=== PATIENT | male | born 1950 | race Caucasian/White ===

== ENCOUNTER 2016-08-24 17:52 | Inpatient (IN) | payer OTHER ==
[~2016-08-24] VITALS: Ht 177.8 cm; Wt 79.0 kg
[2016-08-24 19:30] VITALS: BP 119/75
[2016-08-24] MEDS ORDERED: IV NORMAL SALINE 1000ML BAG 1,000 ML IV SCH (20:15)
[2016-08-24] MEDS ORDERED: MORPHINE SULFATE 4 MG/ML DISP.SYRIN. IV PRN (20:15)
--- NOTE | 2016-08-24 22:13 | PDOC1 ---
History and Physical Date of Admission Date of Admission DATE: 08/24/16 TIME: 22:06 Identification/Chief Complaint Chief Complaint dizzy Problems: Source Source: Chart review, Patient History of Present Illness History of Present Illness pt was weak and dizzy about three days, worse today, went to the [facility] ER, and they requested transfer here. He has prior Hx of Renal Cell Ca. years ago, post nephrectomy. [facility] Er reported recurrence of cancer, now with recent chemo for metastatic disease, and they mentioned they had offered him hospice. He is reluctant to move that way as he is ambulatory and feels well some weakness and some dizzyness Past Surgical History Past Surgical History: Other (nephrectpmy) Family History Family History: No Significant Social History Smoke: No ALCOHOL: none Drugs: None Current Medications Current Medications Current Medications Sodium Chloride (Iv Sodium Chloride 0.9% 1000ml Bag) 1,000 ml @ 80 mls/hr [id number] IV Last administered on 08/24/16t 21:13; Start 08/24/16 at 20:15 Morphine Sulfate 4 mg PRN Q2HR PRN IV PAIN Last administered on 08/24/16t 21:14 ; Start 08/24/16 at 20:15 Oxycodone/ Acetaminophen (Percocet 5/325) 1 tab PRN Q4HRS PRN PO PAIN; Start at 20:15 Polyethylene Glycol (miraLAX PACKET) 17 gm DAILY PO ; Start 08/25/16 at 09:00 Carvedilol (Coreg) 6.25 mg BIDWMEALS PO ; Start 08/24/16 at 22:15; Status UNV Albuterol/ Ipratropium (Duoneb) 3 ml BID NEB ; Start 08/25/16 at 09:00; Status UNV Budesonide (Pulmicort) 0.5 mg 1X ONCE NEB ; Start 08/24/16 at 22:15; Stop 08/24 at 22:16; Status UNV Budesonide (Pulmicort) 0.5 mg RTBID NEB ; Start 08/25/16 at 08:00; Status UNV Albuterol/ Ipratropium (Duoneb) 3 ml RTQID PRN NEB dyspnea; Start 08/24/16 at 22:15; Status UNV Allergies Allergies: Coded Allergies: bupropion (Verified Allergy, Intermediate, 08/24/16) ROS General: YES: Fatigue, No: Appetite, Chills, Malaise, Night Sweats, Other PSYCHOLOGICAL ROS: YES: Irritablity, No: Anxiety, Behavioral Disorder, Concentration difficultie, Decreased libido , Depression, Disorientation, Hallucinations, Hostility, Memory difficulties, Mood Swings, Obsessive thoughts, Other, Physical abuse, Sexual abuse, Sleep disturbances, Suicidal ideation Eyes: No Blurry vision, No Decreased vision, No Double vision, No Dry eyes, No Excessive tearing, No Eye Pain, No Itchy Eyes, No Loss of vision, No Other, No Photophobia, No Scotomata, No Uses contacts, No Uses glasses HEENT: No: Epistaxis, Heacaches, Hearing change, Nasal congestion, Nasal discharge, Oral lesions, Other, Sinus pain, Sneezing, Snoring, Sore Throat, Tinnitus, Vertigo, Visual Changes, Vocal changes Respiratory: YES: SOB with excertion, Shortness of breath, No: Cough, Hemoptysis, Orthopnea, Other, Pleuritic Pain, Sputum Changes, Stridor, Tachypnea, Wheezing Cardiovascular: No Chest Pain, No Edema, No Lt Headedness, No Orthopnea, No Other, No Palpitations, No Paroxysmal Noc. Dyspnea Gastrointestinal: Yes Nausea, No Abdominal Pain, No Constipation, No Diarrhea, No Hematochezia, No Melena, No Other, No Vomiting Genitourinary: No , No , No , No , No , No , No , No Discharge, No Dysuria, No Flank Pain, No Frequency, No Hematuria, No Incontinence, No Other, No Pain, No Retention, No Urgency Musculoskeletal: No Gait Disturbance, No Joint Pain, No Joint Stiffness, No Joint Swelling, No Muscle Pain, No Muscular Weakness, No Other, No Pain In:, No Swelling In: Neurological: Yes Dizziness, Yes Gait Disturbance, No Behavorial Changes, No Bowel/Bladder ControlChng, No Confusion, No Headaches, No Impaired Coord/balance, No Memory Loss, No Numbness/Tingling, No Other, No Seizures, No Speech Problems, No Tremors, No Visual Changes, No Weakness Skin: No Acne, No Dry Skin, No Eczema, No Hair Changes, No Lumps, No Mole Changes, No Mottling, No Nail Changes, No Other, No Pruritus, No Rash, No Skin Lesion Changes Physical Exam General: Alert, Oriented X3, Cooperative, No acute distress HEENT: Atraumatic, PERRLA, EOMI, Mucous membr. moist/pink Lungs: Clear to auscultation, Normal air movement Heart: no gallops, no murmurs, irregularly irregular Abdomen: Normal bowel sounds, Soft Rectal Exam: not examined Extremities: No cyanosis, No edema, Normal pulses Skin: No rashes Neuro: Normal speech, Sensation intact, Cranial nerves 3-12 NL Psych/Mental Status: Mental status NL, Mood NL Vitals Vitals Vital Signs Date Time Temp Pulse Resp B/P Pulse Ox O2 Delivery O2 Flow Rate FiO2 08/24/16 21:47 18 96 2.0 08/24/16 21:14 Room Air 08/24/16 19:30 97.9 105 119/75 97.9 Labs Labs Laboratory Tests Test 08/24/16 20:40 Glucose (Fingerstick) 102mg/dL (70-99) Laboratory Tests Test 08/24/16 20:40 Glucose (Fingerstick) 102mg/dL (70-99) VTE Prophylaxis Ordered VTE Prophylaxis Devices: No VTE Pharmacological Prophylaxi: Yes Assessment/Plan Assessment/Plan Dehydration, vasomotor nephropathy. IV fluid, consult renal Htn, bigeminy, restart Coreg, cont norvasc, consult CV Renal Cell Ca, metastatic, w. s/p prior nephrectomy and treatment for same years ago. Consult onc, prognosis likely poor COPD, stable, 02 at HS, cont nebs, and Inhl steroid LANCE STEVE MD Aug 24, 2016 22:13
[2016-08-24] MEDS ORDERED: SALIVA STIMULANT AGENT 44ML SPRAY BOTTLE. PO PRN (22:15)
[2016-08-24] MEDS ORDERED: BUDESONIDE 0.5 MG/2 ML NEBU. NEB ONE (22:15)
[2016-08-24] MEDS ORDERED: MIRTAZAPINE 15 MG TABLET PO SCH (22:15)
[2016-08-24] MEDS ORDERED: ALBUTEROL SULFATE 2.5 MG/3 ML NEBU. NEB PRN (22:15)
[2016-08-24] MEDS: CARVEDILOL 6.25 MG TABLET. PO SCH (22:57)
--- NOTE | 2016-08-24 23:51 | RAD ---
Ventilation and perfusion lung scan Indication: Shortness of air. The patient was administered 25 millicuries of xenon 133 gas and inspiratory, equilibrium and washout views of the chest were obtained. Next, patient was administered 5 millicuries Tc 99m MAA intravenously and imaging of the chest was performed in multiple obliquities. The ventilation portion of the study show somewhat heterogeneous ventilation. There is moderate retention consistent with COPD. No ventilation defects are seen. Perfusion portion of the exam does show some heterogeneous profusion but no definite moderate or large sized pleural based perfusion defects are identified. Impression: Low to low intermediate probability for pulmonary embolism. Electronically signed by: Dann Morin MD (Aug 24, 2016 23:50:50)
--- NOTE | 2016-08-25 00:07 | RAD ---
Chest PA and lateral Indication: Shortness of air. Time of exam 11:43 p.m. The heart size is normal. The lungs are hyperinflated consistent with COPD. There is a nodular density in the right base, likely a granuloma. No infiltrate or failure is detected. No effusion is seen. Impression: COPD. No other significant abnormality is detected. Electronically signed by: Dann Morin MD (Aug 25, 2016 00:05:54)
[2016-08-25] MEDS ORDERED: TIOT18CA IH (01:51)
[2016-08-25] MEDS ORDERED: SENN1TAB21 PO (01:51)
[2016-08-25] MEDS ORDERED: ALBU8.5H5 IH (01:51)
[2016-08-25] MEDS ORDERED: MIRT15TA PO (01:51)
[2016-08-25] MEDS ORDERED: METH5TAB12 PO (01:51)
[2016-08-25] MEDS ORDERED: LOPE2CAP PO (01:51)
[2016-08-25] MEDS ORDERED: SALI44.3 MM (01:51)
[2016-08-25] MEDS ORDERED: MORP30TA3 PO (01:51)
[2016-08-25] MEDS ORDERED: BUDE10.2 IH (01:51)
[2016-08-25] MEDS ORDERED: ASPI-482 PO (01:51)
[2016-08-25] MEDS ORDERED: PROAIR HFA8.5 GM INH (01:51)
[2016-08-25] MEDS ORDERED: ONDA4TAB10 SL (01:51)
[2016-08-25] MEDS ORDERED: MORP15TA PO (01:51)
[2016-08-25] MEDS ORDERED: TAMS0.4C2 PO (01:51)
[2016-08-25] MEDS ORDERED: METF500T4 PO (01:51)
[2016-08-25] MEDS ORDERED: AMLO10TA2 PO (01:51)
[2016-08-25 03:50] VITALS: BP 103/69
[2016-08-25 05:10] LABS: BASO # 0.1 x10^3/uL (0.0-0.2); BASO % 1 % (0-3); EOS % 8 % (0-3); HEMATOCRIT 29.2 % (39.0-53.0); HEMOGLOBIN 9.6 g/dL (13.0-17.5); LYMPH % 17 % (24-48); MEAN CORPUSCULAR HEMOGLOBIN 31 pg (25-35); MEAN CORPUSCULAR HGB CONC 33 g/dL (31-37); MEAN CORPUSCULAR VOLUME 95 fL (79-100); MONO % 10 % (0-9); NEUT % 64 % (31-73); PLATELET COUNT 347 x10^3/uL (140-400); RED BLOOD COUNT 3.07 x10^6/uL (4.30-5.70); WHITE BLOOD COUNT 5.9 x10^3/uL (4.0-11.0)
[2016-08-25 05:35] LABS: INR 1.1 (0.8-1.1); PROTHROMBIN TIME PATIENT 13.8 SEC (11.7-14.0)
[2016-08-25 05:40] LABS: ALBUMIN 3.1 g/dL (3.4-5.0); ALBUMIN/GLOBULIN RATIO 0.8 (1.0-1.7); CALCIUM 9.2 mg/dL (8.5-10.1); CREATININE 1.3 mg/dL (0.7-1.3); GFR 55.6; PHOSPHORUS 4.2 mg/dL (2.6-4.7); POTASSIUM 4.1 mmol/L (3.5-5.1); TOTAL BILIRUBIN 0.3 mg/dL (0.2-1.0)
[2016-08-25 07:00] VITALS: BP 113/79
[2016-08-25] MEDS ORDERED: IPRATRPIUM/ALBUTEROL 0.5/2.5MG 3 ML NEBU. NEB SCH (08:00)
[2016-08-25] MEDS ORDERED: BUDESONIDE 0.5 MG/2 ML NEBU. NEB SCH (08:00)
--- NOTE | 2016-08-25 08:43 | PDOC ---
PROGRESS NOTES Chief Complaint Chief Complaint Generalized weakness, dizziness POA Dehydration, vasomotor nephropathy. I Htn, bigeminy, Renal Cell Ca, metastatic, w. s/p prior nephrectomy and tx- COPD, stable, 02 at HS, MIld PCM History of Present Illness History of Present Illness DOing ok NO comaplaints Labs ok VS ok [facility] can [facility]" PLAN: Renal , heme onc and cards consulted for the VAIBHAV, bigeminy and RCC, respectively. Add pt./ot CPM Likely dc fei if no further work up and cont to do well Vitals Vitals Vital Signs Date Time Temp Pulse Resp B/P Pulse Ox O2 Delivery O2 Flow Rate FiO2 08/25/16 07:32 95 Nasal Cannula 2.0 08/25/16 07:00 97.9 81 14 113/79 97.9 Physical Exam General: Alert, Oriented X3, Cooperative, No acute distress Abdomen: Normal bowel sounds, Soft Extremities: No cyanosis, No edema, Normal pulses Skin: No rashes Labs LABS Laboratory Tests Test 08/24/16 20:40 08/25/16 03:39 08/25/16 08:03 Glucose (Fingerstick) 102mg/dL (70-99) 100mg/dL (70-99) White Blood Count 5.9x10^3/uL (4.0-11.0) Red Blood Count 3.07x10^6/uL (4.30-5.70) Hemoglobin 9.6g/dL (13.0-17.5) Hematocrit 29.2% (39.0-53.0) Mean Corpuscular Volume 95fL (79-100) Mean Corpuscular Hemoglobin 31pg (25-35) Mean Corpuscular Hemoglobin Concent 33g/dL (31-37) Red Cell Distribution Width 16.0% (11.5-14.5) Platelet Count 347x10^3/uL (140-400) Neutrophils (%) (Auto) 64% (31-73) Lymphocytes (%) (Auto) 17% (24-48) Monocytes (%) (Auto) 10% (0-9) Eosinophils (%) (Auto) 8% (0-3) Basophils (%) (Auto) 1% (0-3) Neutrophils # (Auto) 3.8x10^3uL (1.8-7.7) Lymphocytes # (Auto) 1.0x10^3/uL (1.0-4.8) Monocytes # (Auto) 0.6x10^3/uL (0.0-1.1) Eosinophils # (Auto) 0.5x10^3/uL (0.0-0.7) Basophils # (Auto) 0.1x10^3/uL (0.0-0.2) Prothrombin Time 13.8SEC (11.7-14.0) Prothromb Time International Ratio 1.1 (0.8-1.1) Sodium Level 142mmol/L (136-145) Potassium Level 4.1mmol/L (3.5-5.1) Chloride Level 106mmol/L (98-107) Carbon Dioxide Level 28mmol/L (21-32) Anion Gap 8 (6-14) Blood Urea Nitrogen 19mg/dL (8-26) Creatinine 1.3mg/dL (0.7-1.3) Estimated GFR (Cockcroft-Gault) 55.6 BUN/Creatinine Ratio 15 (6-20) Glucose Level 83mg/dL (70-99) Calcium Level 9.2mg/dL (8.5-10.1) Phosphorus Level 4.2mg/dL (2.6-4.7) Magnesium Level 2.0mg/dL (1.8-2.4) Total Bilirubin 0.3mg/dL (0.2-1.0) Aspartate Amino Transf (AST/SGOT) 12U/L (15-37) Alanine Aminotransferase (ALT/SGPT) 10U/L (16-63) Alkaline Phosphatase 68U/L (46-116) Total Protein 7.0g/dL (6.4-8.2) Albumin 3.1g/dL (3.4-5.0) Albumin/Globulin Ratio 0.8 (1.0-1.7) Review of Systems Review of Systems all 14 pt systems reviewed, denies Comment Review of Relevant I have reviewed the following items marty (where applicable) has been applied. Labs Laboratory Tests Test 08/24/16 20:40 08/25/16 03:39 08/25/16 08:03 Glucose (Fingerstick) 102mg/dL (70-99) 100mg/dL (70-99) White Blood Count 5.9x10^3/uL (4.0-11.0) Red Blood Count 3.07x10^6/uL (4.30-5.70) Hemoglobin 9.6g/dL (13.0-17.5) Hematocrit 29.2% (39.0-53.0) Mean Corpuscular Volume 95fL (79-100) Mean Corpuscular Hemoglobin 31pg (25-35) Mean Corpuscular Hemoglobin Concent 33g/dL (31-37) Red Cell Distribution Width 16.0% (11.5-14.5) Platelet Count 347x10^3/uL (140-400) Neutrophils (%) (Auto) 64% (31-73) Lymphocytes (%) (Auto) 17% (24-48) Monocytes (%) (Auto) 10% (0-9) Eosinophils (%) (Auto) 8% (0-3) Basophils (%) (Auto) 1% (0-3) Neutrophils # (Auto) 3.8x10^3uL (1.8-7.7) Lymphocytes # (Auto) 1.0x10^3/uL (1.0-4.8) Monocytes # (Auto) 0.6x10^3/uL (0.0-1.1) Eosinophils # (Auto) 0.5x10^3/uL (0.0-0.7) Basophils # (Auto) 0.1x10^3/uL (0.0-0.2) Prothrombin Time 13.8SEC (11.7-14.0) Prothromb Time International Ratio 1.1 (0.8-1.1) Sodium Level 142mmol/L (136-145) Potassium Level 4.1mmol/L (3.5-5.1) Chloride Level 106mmol/L (98-107) Carbon Dioxide Level 28mmol/L (21-32) Anion Gap 8 (6-14) Blood Urea Nitrogen 19mg/dL (8-26) Creatinine 1.3mg/dL (0.7-1.3) Estimated GFR (Cockcroft-Gault) 55.6 BUN/Creatinine Ratio 15 (6-20) Glucose Level 83mg/dL (70-99) Calcium Level 9.2mg/dL (8.5-10.1) Phosphorus Level 4.2mg/dL (2.6-4.7) Magnesium Level 2.0mg/dL (1.8-2.4) Total Bilirubin 0.3mg/dL (0.2-1.0) Aspartate Amino Transf (AST/SGOT) 12U/L (15-37) Alanine Aminotransferase (ALT/SGPT) 10U/L (16-63) Alkaline Phosphatase 68U/L (46-116) Total Protein 7.0g/dL (6.4-8.2) Albumin 3.1g/dL (3.4-5.0) Albumin/Globulin Ratio 0.8 (1.0-1.7) Laboratory Tests Test 08/24/16 20:40 08/25/16 03:39 08/25/16 08:03 Glucose (Fingerstick) 102mg/dL (70-99) 100mg/dL (70-99) White Blood Count 5.9x10^3/uL (4.0-11.0) Red Blood Count 3.07x10^6/uL (4.30-5.70) Hemoglobin 9.6g/dL (13.0-17.5) Hematocrit 29.2% (39.0-53.0) Mean Corpuscular Volume 95fL (79-100) Mean Corpuscular Hemoglobin 31pg (25-35) Mean Corpuscular Hemoglobin Concent 33g/dL (31-37) Red Cell Distribution Width 16.0% (11.5-14.5) Platelet Count 347x10^3/uL (140-400) Neutrophils (%) (Auto) 64% (31-73) Lymphocytes (%) (Auto) 17% (24-48) Monocytes (%) (Auto) 10% (0-9) Eosinophils (%) (Auto) 8% (0-3) Basophils (%) (Auto) 1% (0-3) Neutrophils # (Auto) 3.8x10^3uL (1.8-7.7) Lymphocytes # (Auto) 1.0x10^3/uL (1.0-4.8) Monocytes # (Auto) 0.6x10^3/uL (0.0-1.1) Eosinophils # (Auto) 0.5x10^3/uL (0.0-0.7) Basophils # (Auto) 0.1x10^3/uL (0.0-0.2) Prothrombin Time 13.8SEC (11.7-14.0) Prothromb Time International Ratio 1.1 (0.8-1.1) Sodium Level 142mmol/L (136-145) Potassium Level 4.1mmol/L (3.5-5.1) Chloride Level 106mmol/L (98-107) Carbon Dioxide Level 28mmol/L (21-32) Anion Gap 8 (6-14) Blood Urea Nitrogen 19mg/dL (8-26) Creatinine 1.3mg/dL (0.7-1.3) Estimated GFR (Cockcroft-Gault) 55.6 BUN/Creatinine Ratio 15 (6-20) Glucose Level 83mg/dL (70-99) Calcium Level 9.2mg/dL (8.5-10.1) Phosphorus Level 4.2mg/dL (2.6-4.7) Magnesium Level 2.0mg/dL (1.8-2.4) Total Bilirubin 0.3mg/dL (0.2-1.0) Aspartate Amino Transf (AST/SGOT) 12U/L (15-37) Alanine Aminotransferase (ALT/SGPT) 10U/L (16-63) Alkaline Phosphatase 68U/L (46-116) Total Protein 7.0g/dL (6.4-8.2) Albumin 3.1g/dL (3.4-5.0) Albumin/Globulin Ratio 0.8 (1.0-1.7) Medications Current Medications Sodium Chloride (Iv Sodium Chloride 0.9% 1000ml Bag) 1,000 ml @ 80 mls/hr [id number] IV Last administered on 08/24/16t 21:13; Start 08/24/16 at 20:15 Morphine Sulfate 4 mg PRN Q2HR PRN IV PAIN Last administered on 08/24/16t 21:14 ; Start 08/24/16 at 20:15 Oxycodone/ Acetaminophen (Percocet 5/325) 1 tab PRN Q4HRS PRN PO PAIN; Start at 20:15 Polyethylene Glycol (miraLAX PACKET) 17 gm DAILY PO ; Start 08/25/16 at 09:00 Carvedilol (Coreg) 6.25 mg BIDWMEALS PO Last administered on 08/24/16 22:57; Start 08/24/16 at 22:15 Albuterol/ Ipratropium (Duoneb) 3 ml RTBID NEB Last administered on 08/25/16 07:32; Start 08/25/16 at 08:00 Budesonide (Pulmicort) 0.5 mg 1X ONCE NEB Last administered on 08/25/16 00:54 ; Start 08/24/16 at 22:15; Stop 08/24/16 at 22:16; Status DC Budesonide (Pulmicort) 0.5 mg RTBID NEB Last administered on 08/25/16 07:32; Start 08/25/16 at 08:00 Albuterol Sulfate (Ventolin Neb Soln) 2.5 mg PRN QID PRN NEB dyspnea; Start at 22:15 Saliva Substitute (Biotene Moisturizing Mouth) 2 spray PRN Q15MIN PRN PO DRY MOUTH; Start 08/24/16 at 22:15 Mirtazapine (Remeron) 30 mg QHS PO Last administered on 08/24/16 22:57; Start 08/24/16 at 22:15 Tamsulosin HCl (Flomax) 0.4 mg DAILY PO ; Start 08/25/16 at 09:00 Amlodipine Besylate (Norvasc) 5 mg DAILY PO ; Start 08/25/16 at 09:00 Enoxaparin Sodium (Lovenox Per Pharmacy Prophylaxis Dosing) 1 each PRN DAILY PRN MC SEE COMMENTS; Start 08/25/16 at 09:00 Enoxaparin Sodium (Lovenox 40mg Syringe) 40 mg DAILY SQ ; Start 08/25/16 at 09: 00 Active Scripts Active Reported Proair Hfa (Albuterol Sulfate) 8.5 Gm Hfa.aer.ad 8.5 Gm IH Proair Hfa Inhaler (Albuterol Sulfate) 8.5 Gm Hfa.aer.ad 2 Puff INH PRN QID PRN Morphine Sulfate 15 Mg Tablet 1 Tab PO PRN BID PRN Spiriva (Tiotropium Garber) 18 Mcg Cap.w.dev 2 Inh IH DAILY Aspir 81 (Aspirin) 81 Mg Tablet.dr 1 Tab PO DAILY Tamsulosin Hcl 0.4 Mg Cap.er.24h 1 Cap PO DAILY Zofran Odt (Ondansetron) 4 Mg Tab.rapdis 1 Tab SL PRN Q4HRS PRN Morphine Sulfate Er (Morphine Sulfate) 30 Mg Tablet.er 1 Tab PO TID Remeron (Mirtazapine) 15 Mg Tablet 1 Tab PO QHS Methylphenidate Hcl 5 Mg Tablet 1 Tab PO BID Metformin Hcl 500 Mg Tablet 500 Mg PO BIDWMEALS Loperamide (Loperamide Hcl) 2 Mg Capsule 2 Mg PO PRN QID PRN Senna Plus Tablet (Sennosides/Docusate Sodium) 1 Each Tablet 1 Each PO PRN BID PRN Symbicort 160-4.5 Mcg Inhaler (Budesonide/Formoterol Fumarate) 10.2 Gm Hfa.aer.ad 2 Puff IH BID Biotene Moisturizing Mouth (Saliva Stimulant Agents Comb.3) 44.3 Ml Prescott 44.3 Ml MM 6XDAY Amlodipine Besylate 10 Mg Tablet 10 Mg PO DAILY Vitals/I & O Vital Sign - Last 24 Hours 08/24/16 08/24/16 08/24/16 08/24/16 19:30 20:22 21:14 21:47 Temp 97.9 97.9 Pulse 105 Resp 20 18 18 B/P 119/75 Pulse Ox 96 96 96 O2 Delivery Nasal Cannula Nasal Cannula Room Air O2 Flow Rate 2.0 2.0 2.0 2.0 08/24/16 08/24/16 08/25/16 08/25/16 22:57 23:32 00:53 03:50 Temp 97.8 97.8 Pulse 105 70 Resp 18 B/P 119/75 103/69 Pulse Ox 88 96 O2 Delivery Nasal Cannula Room Air Nasal Cannula O2 Flow Rate 2.0 2.0 08/25/16 08/25/16 07:00 07:32 Temp 97.9 97.9 Pulse 81 Resp 14 B/P 113/79 Pulse Ox 95 95 O2 Delivery Nasal Cannula Nasal Cannula O2 Flow Rate 2.0 2.0 Intake and Output 08/24/16 08/24/16 08/25/16 15:00 23:00 07:00 Intake Total 0 ml 1040 ml Output Total 300 ml 350 ml Balance -300 ml 690 ml TANNER MALONE MD Aug 25, 2016 08:43
[2016-08-25] MEDS ORDERED: AMLODIPINE BESYLATE 5 MG TABLET. PO SCH (09:00)
[2016-08-25] MEDS ORDERED: TAMSULOSIN 0.4 MG CAP.ER.24H. PO SCH (09:00)
[2016-08-25] MEDS ORDERED: ENOXAPARIN 40 MG/0.4 ML SYRINGE. SQ SCH (09:00)
[2016-08-25] MEDS ORDERED: POLYETHYLENE GLYCOL 3350 17 GM PACKET. PO SCH (09:00)
[2016-08-25] MEDS: CARVEDILOL 6.25 MG TABLET. PO SCH (09:18)
--- NOTE | 2016-08-25 10:11 | ED.ADGEN ---
Adult General Chief Complaint Chief Complaint: dizziness HPI HPI Patient is a 65 year old male who was transferred from [facility] last night due to dizziness. 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 He has failed sutent, had XRT for concern for invasion into IVC 05/31-06/19/16, then also tried everolimus in early July 2016. He had recent admit mid July - cough, soa, fatigue - thought to be at least partially related to everolimus side effects. In the ER at [facility] yesterday, he was noted to have slight change in Cr to 1.4 (up from 1.0 on 08/09/16, but it was 1.8 in mid July 2016 too), with HR in 110s, so they started him on IVF and transferred him here. Quite frankly, he is not sure why they couldn't just take care of him there. He already feels better and is wanting to go home (his can come pick him up). Review of Systems Review of Systems Constitutional: Denies fever or chills. He does not feel faint anymore[] Eyes: Denies change in visual acuity. [] HENT: Denies nasal congestion or sore throat. [] Respiratory: Denies cough or shortness of breath more than usual. He was started on home oxygen after his admit in mid-July; he is using his baseline amount now.[] Cardiovascular: Denies chest pain or edema. [] GI: Denies abdominal pain, nausea, vomiting, bloody stools or diarrhea. [] : Denies dysuria. [] Musculoskeletal: Denies back pain or joint pain. [] Integument: Denies rash. [] Neurologic: Denies headache, focal weakness or sensory changes. [] Endocrine: Denies polyuria or polydipsia. [] Lymphatic: Denies swollen glands. [] Psychiatric: Denies depression or anxiety. [] Family History Family History non-contributory Social Hx: has had drug abuse problems in the past, but is currently off illegal drugs PMH: sig for CHF, DM, COPD, Hep C Surg: s/p nephrectomy Current Medications Current Medications Current Medications Medications (Trade) Dose Ordered Sig/Janelle Start Time Stop Time Status Last Admin Dose Admin Albuterol Sulfate (Ventolin Neb Soln) 2.5 mg PRN QID PRN 08/24/16 22:15 Albuterol/ Ipratropium (Duoneb) 3 ml RTBID 08/25/16 08:00 08/25/16 07:32 3 ML Amlodipine Besylate (Norvasc) 5 mg DAILY 08/25/16 09:00 08/25/16 09:17 5 MG Budesonide (Pulmicort) 0.5 mg RTBID 08/25/16 08:00 08/25/16 07:32 0.5 MG Carvedilol (Coreg) 6.25 mg BIDWMEALS 08/24/16 22:15 08/25/16 09:18 6.25 MG Enoxaparin Sodium (Lovenox 40mg Syringe) 40 mg DAILY 08/25/16 09:00 08/25/16 09:19 40 MG Enoxaparin Sodium (Lovenox Per Pharmacy Prophylaxis Dosing) 1 each PRN DAILY PRN 08/25/16 09:00 Mirtazapine (Remeron) 30 mg QHS 08/24/16 22:15 08/24/16 22:57 30 MG Morphine Sulfate 4 mg PRN Q2HR PRN 08/24/16 20:15 08/24/16 21:14 4 MG Oxycodone/ Acetaminophen (Percocet 5/325) 1 tab PRN Q4HRS PRN 08/24/16 20:15 Polyethylene Glycol (miraLAX PACKET) 17 gm DAILY 08/25/16 09:00 Saliva Substitute (Biotene Moisturizing Mouth) 2 spray PRN Q15MIN PRN 08/24/16 22:15 Sodium Chloride (Iv Sodium Chloride 0.9% 1000ml Bag) 1,000 ml @ 80 mls/hr [id number] 08/24/16 20:15 08/24/16 21:13 80 MLS/HR Tamsulosin HCl (Flomax) 0.4 mg DAILY 08/25/16 09:00 08/25/16 09:17 0.4 MG Allergies Allergies Allergies Coded Allergies Type Severity Reaction Last Updated Verified bupropion Allergy Intermediate 08/24/16 Yes Physical Exam Physical Exam Constitutional: Well developed, well nourished, no acute distress, non-toxic appearance. wearing nasal cannula appropriately [] HENT: Normocephalic, atraumatic, bilateral external ears normal, oropharynx moist, no oral exudates, nose normal. [] Eyes: PERRLA, EOMI, conjunctiva normal, no discharge. [] Neck: Normal range of motion, no tenderness, supple, no stridor. [] Cardiovascular:Heart rate regular rhythm, no murmur [] Lungs & Thorax: Bilateral breath sounds clear to auscultation [] Abdomen: Bowel sounds normal, soft, no tenderness, no masses, no pulsatile masses. [] Skin: Warm, dry, no erythema, no rash. [] Back: No tenderness, no CVA tenderness. [] Extremities: No tenderness, no cyanosis, no clubbing, ROM intact, no edema. [] Neurologic: Alert and oriented X 3, normal motor function, normal sensory function, no focal deficits noted. [] Psychologic: Affect normal, judgement normal, mood normal. [] Current Patient Data Vital Signs Vital Signs Date Time Temp Pulse Resp B/P Pulse Ox O2 Delivery O2 Flow Rate FiO2 08/25/16 09:18 81 113/79 08/25/16 07:32 95 Nasal Cannula 2.0 08/25/16 07:00 97.9 14 97.9 Lab Values Laboratory Tests Test 08/24/16 20:40 08/25/16 03:39 08/25/16 08:03 Glucose (Fingerstick) 102mg/dL (70-99) H 100mg/dL (70-99) H White Blood Count 5.9x10^3/uL (4.0-11.0) Red Blood Count 3.07x10^6/uL (4.30-5.70) L Hemoglobin 9.6g/dL (13.0-17.5) L Hematocrit 29.2% (39.0-53.0) L Mean Corpuscular Volume 95fL (79-100) Mean Corpuscular Hemoglobin 31pg (25-35) Mean Corpuscular Hemoglobin Concent 33g/dL (31-37) Red Cell Distribution Width 16.0% (11.5-14.5) H Platelet Count 347x10^3/uL (140-400) Neutrophils (%) (Auto) 64% (31-73) Lymphocytes (%) (Auto) 17% (24-48) L Monocytes (%) (Auto) 10% (0-9) H Eosinophils (%) (Auto) 8% (0-3) H Basophils (%) (Auto) 1% (0-3) Neutrophils # (Auto) 3.8x10^3uL (1.8-7.7) Lymphocytes # (Auto) 1.0x10^3/uL (1.0-4.8) Monocytes # (Auto) 0.6x10^3/uL (0.0-1.1) Eosinophils # (Auto) 0.5x10^3/uL (0.0-0.7) Basophils # (Auto) 0.1x10^3/uL (0.0-0.2) Prothrombin Time 13.8SEC (11.7-14.0) Prothrombin Time INR 1.1 (0.8-1.1) Sodium Level 142mmol/L (136-145) Potassium Level 4.1mmol/L (3.5-5.1) Chloride Level 106mmol/L (98-107) Carbon Dioxide Level 28mmol/L (21-32) Anion Gap 8 (6-14) Blood Urea Nitrogen 19mg/dL (8-26) Creatinine 1.3mg/dL (0.7-1.3) Estimated GFR (Cockcroft-Gault) 55.6 BUN/Creatinine Ratio 15 (6-20) Glucose Level 83mg/dL (70-99) Calcium Level 9.2mg/dL (8.5-10.1) Phosphorus Level 4.2mg/dL (2.6-4.7) Magnesium Level 2.0mg/dL (1.8-2.4) Total Bilirubin 0.3mg/dL (0.2-1.0) Aspartate Amino Transferase (AST) 12U/L (15-37) L Alanine Aminotransferase (ALT) 10U/L (16-63) L Alkaline Phosphatase 68U/L (46-116) Total Protein 7.0g/dL (6.4-8.2) Albumin 3.1g/dL (3.4-5.0) L Albumin/Globulin Ratio 0.8 (1.0-1.7) L Laboratory Tests 08/25/16 03:39 Laboratory Tests 08/25/16 03:39 EKG EKG [] Radiology/Procedures Radiology/Procedures [] Impressions: 65 yo M c recurrent metastatic papillary RCC, transferred from [facility] for tachycardia and faintness with slight change in renal function, already improving with hydration overnight. He has tried sutent and everolimus previously. Quite honestly, I am not sure why he needed to be transferred here in the first place, nor why he needs to stay in the hospital. There is no need from my end for him to be here, and he is itching to get home. I have reviewed other treatment options with him, including the whole class of immunotherapeutics that he has not tried in the past. He will follow up with Dr Westbrook to discuss further. Other option would be best supportive care, which he is not quite ready to commit to yet (but [facility]). Recommend home with outpt oncology follow-up within the next week. Course & Med Decision Making Course & Med Decision Making Pertinent Labs and Imaging studies reviewed. (See chart for details) [] Carlos Disclaimer Carlos Disclaimer PALMA HALEY MD Aug 25, 2016 10:10
[2016-08-25] MEDS: OXYCODONE/APAP 5/325 TABLET. PO PRN ×2 (10:45→15:35)
[2016-08-25 11:00] VITALS: BP 110/72
[2016-08-25 14:57] VITALS: BP 98/51
[2016-08-25] MEDS ORDERED: CARV6.25 PO (15:47)
--- NOTE | 2016-08-25 16:14 | PDOC3 ---
Discharge Summary Visit Information Date of Admission: Aug 24, 2016 Date of Discharge: Aug 25, 2016 Admitting Diagnosis Comment: Generalized weakness, dizziness POA Dehydration, vasomotor nephropathy. I Htn, bigeminy, Renal Cell Ca, metastatic, w. s/p prior nephrectomy and tx- COPD, stable, 02 at HS, MIld PCM Brief Hospital Course Allergies Allergies Coded Allergies Type Severity Reaction Last Updated Verified bupropion Allergy Intermediate 08/24/16 Yes Vital Signs Vital Signs Date Time Temp Pulse Resp B/P Pulse Ox O2 Delivery O2 Flow Rate FiO2 08/25/16 15:35 18 Nasal Cannula 08/25/16 14:57 98.5 76 98/51 92 2.0 98.5 Lab Results Laboratory Tests Test 08/24/16 20:40 08/25/16 03:39 08/25/16 08:03 08/25/16 11:55 Glucose (Fingerstick) 102mg/dL (70-99) 100mg/dL (70-99) 112mg/dL (70-99) White Blood Count 5.9x10^3/uL (4.0-11.0) Red Blood Count 3.07x10^6/uL (4.30-5.70) Hemoglobin 9.6g/dL (13.0-17.5) Hematocrit 29.2% (39.0-53.0) Mean Corpuscular Volume 95fL (79-100) Mean Corpuscular Hemoglobin 31pg (25-35) Mean Corpuscular Hemoglobin Concent 33g/dL (31-37) Red Cell Distribution Width 16.0% (11.5-14.5) Platelet Count 347x10^3/uL (140-400) Neutrophils (%) (Auto) 64% (31-73) Lymphocytes (%) (Auto) 17% (24-48) Monocytes (%) (Auto) 10% (0-9) Eosinophils (%) (Auto) 8% (0-3) Basophils (%) (Auto) 1% (0-3) Neutrophils # (Auto) 3.8x10^3uL (1.8-7.7) Lymphocytes # (Auto) 1.0x10^3/uL (1.0-4.8) Monocytes # (Auto) 0.6x10^3/uL (0.0-1.1) Eosinophils # (Auto) 0.5x10^3/uL (0.0-0.7) Basophils # (Auto) 0.1x10^3/uL (0.0-0.2) Prothrombin Time 13.8SEC (11.7-14.0) Prothromb Time International Ratio 1.1 (0.8-1.1) Sodium Level 142mmol/L (136-145) Potassium Level 4.1mmol/L (3.5-5.1) Chloride Level 106mmol/L (98-107) Carbon Dioxide Level 28mmol/L (21-32) Anion Gap 8 (6-14) Blood Urea Nitrogen 19mg/dL (8-26) Creatinine 1.3mg/dL (0.7-1.3) Estimated GFR (Cockcroft-Gault) 55.6 BUN/Creatinine Ratio 15 (6-20) Glucose Level 83mg/dL (70-99) Calcium Level 9.2mg/dL (8.5-10.1) Phosphorus Level 4.2mg/dL (2.6-4.7) Magnesium Level 2.0mg/dL (1.8-2.4) Total Bilirubin 0.3mg/dL (0.2-1.0) Aspartate Amino Transf (AST/SGOT) 12U/L (15-37) Alanine Aminotransferase (ALT/SGPT) 10U/L (16-63) Alkaline Phosphatase 68U/L (46-116) Total Protein 7.0g/dL (6.4-8.2) Albumin 3.1g/dL (3.4-5.0) Albumin/Globulin Ratio 0.8 (1.0-1.7) Laboratory Tests Test 08/24/16 20:40 08/25/16 03:39 08/25/16 08:03 08/25/16 11:55 Glucose (Fingerstick) 102mg/dL (70-99) 100mg/dL (70-99) 112mg/dL (70-99) White Blood Count 5.9x10^3/uL (4.0-11.0) Red Blood Count 3.07x10^6/uL (4.30-5.70) Hemoglobin 9.6g/dL (13.0-17.5) Hematocrit 29.2% (39.0-53.0) Mean Corpuscular Volume 95fL (79-100) Mean Corpuscular Hemoglobin 31pg (25-35) Mean Corpuscular Hemoglobin Concent 33g/dL (31-37) Red Cell Distribution Width 16.0% (11.5-14.5) Platelet Count 347x10^3/uL (140-400) Neutrophils (%) (Auto) 64% (31-73) Lymphocytes (%) (Auto) 17% (24-48) Monocytes (%) (Auto) 10% (0-9) Eosinophils (%) (Auto) 8% (0-3) Basophils (%) (Auto) 1% (0-3) Neutrophils # (Auto) 3.8x10^3uL (1.8-7.7) Lymphocytes # (Auto) 1.0x10^3/uL (1.0-4.8) Monocytes # (Auto) 0.6x10^3/uL (0.0-1.1) Eosinophils # (Auto) 0.5x10^3/uL (0.0-0.7) Basophils # (Auto) 0.1x10^3/uL (0.0-0.2) Prothrombin Time 13.8SEC (11.7-14.0) Prothromb Time International Ratio 1.1 (0.8-1.1) Sodium Level 142mmol/L (136-145) Potassium Level 4.1mmol/L (3.5-5.1) Chloride Level 106mmol/L (98-107) Carbon Dioxide Level 28mmol/L (21-32) Anion Gap 8 (6-14) Blood Urea Nitrogen 19mg/dL (8-26) Creatinine 1.3mg/dL (0.7-1.3) Estimated GFR (Cockcroft-Gault) 55.6 BUN/Creatinine Ratio 15 (6-20) Glucose Level 83mg/dL (70-99) Calcium Level 9.2mg/dL (8.5-10.1) Phosphorus Level 4.2mg/dL (2.6-4.7) Magnesium Level 2.0mg/dL (1.8-2.4) Total Bilirubin 0.3mg/dL (0.2-1.0) Aspartate Amino Transf (AST/SGOT) 12U/L (15-37) Alanine Aminotransferase (ALT/SGPT) 10U/L (16-63) Alkaline Phosphatase 68U/L (46-116) Total Protein 7.0g/dL (6.4-8.2) Albumin 3.1g/dL (3.4-5.0) Albumin/Globulin Ratio 0.8 (1.0-1.7) Brief Hospital Course Mr. Gerber is a 65 old Caucssian male admitted for dizziness, VAIBHAV, better with overnight iVF, HAd some bigeminy transient at ER, hx metastatic RCC s/p tx -tx nothing more to do , CLeared to be dc from renal and heme onc and cards. No further work up, Very benign stay 2 notes today\ dw RN and pt Discharge Information Condition at Discharge: Improved, Stable Disposition/Orders: D/C to Home Scheduled Amlodipine Besylate (Amlodipine Besylate) 10 MG PO DAILY (Reported) Aspirin (Aspir 81) 1 TAB PO DAILY (Reported) Budesonide/Formoterol Fumarate (Symbicort 160-4.5 Mcg Inhaler) 2 PUFF IH BID ( Reported) Carvedilol (Coreg) 1 TAB PO BID (Reported) Metformin Hcl (Metformin Hcl) 500 MG PO BIDWMEALS (Reported) Methylphenidate Hcl (Methylphenidate Hcl) 1 TAB PO BID (Reported) Mirtazapine (Remeron) 1 TAB PO QHS (Reported) Morphine Sulfate (Morphine Sulfate Er) 1 TAB PO TID (Reported) Saliva Stimulant Agents Comb.3 (Biotene Moisturizing Mouth) 44.3 ML MM 6XDAY ( Reported) Tamsulosin Hcl (Tamsulosin Hcl) 1 CAP PO DAILY (Reported) Tiotropium [place] (Spiriva) 2 INH IH DAILY (Reported) Scheduled PRN Albuterol Sulfate (Proair Hfa Inhaler) 2 PUFF INH PRN QID PRN PRN SHORTNESS OF BREATH (Reported) Loperamide Hcl (Loperamide) 2 MG PO PRN QID PRN PRN DIARRHEA (Reported) Morphine Sulfate (Morphine Sulfate) 1 TAB PO PRN BID PRN PRN PAIN (Reported) Ondansetron (Zofran Odt) 1 TAB SL PRN Q4HRS PRN PRN NAUSEA/VOMITING (Reported) Sennosides/Docusate Sodium (Senna Plus Tablet) 1 EACH PO PRN BID PRN PRN CONSTIPATION (Reported) Miscellaneous Medications Albuterol Sulfate (Proair Hfa) 8.5 GM IH (Reported) TANNER MALONE MD Aug 25, 2016 16:14
--- NOTE | 2016-08-25 16:15 | PDOC2 ---
CONSULT Date of Consult Date of Consult DATE: 08/25/16 TIME: 16:09 Reason for Consult Reason for Consult: Palpitations Referring Physician Referring Physician: Dr Machado Identification/Chief Complaint Chief Complaint Lightheadedness and dehydration History of Present Illness Reason for Visit: This patient is a 65-year-old gentleman that usually goes to the [place]. He has a known history of hypertension and heart failure. He has a metastatic renal cell CVA and is status post nephrectomy and has received chemotherapy. The patient has been feeling rather weak and tired and his blood pressure was running low and due to that the chordae that he takes was stopped. The patient comes in feeling some palpitations as well as dizziness and rather faint. On arrival he was found to be hypotensive and dehydrated. He has been getting IV fluids and at the time that I saw him he is feeling much better. He was having frequent PVCs on the monitor since he arrived. Past Medical History Cardiovascular: CHF, HTN Heme/Onc: Cancer Renal/: Renal Ca. Past Surgical History Past Surgical History: Other (nephrectpmy) Family History Family History: No Significant Social History No ALCOHOL: none Drugs: None Current Medications Current Medications Current Medications Sodium Chloride (Iv Sodium Chloride 0.9% 1000ml Bag) 1,000 ml @ 80 mls/hr [id number] IV Last administered on 08/24/16 21:13; Start 08/24/16 at 20:15 Morphine Sulfate 4 mg PRN Q2HR PRN IV PAIN Last administered on 08/24/16 21:14 ; Start 08/24/16 at 20:15 Oxycodone/ Acetaminophen (Percocet 5/325) 1 tab PRN Q4HRS PRN PO PAIN Last administered on 08/25/16 15:35; Start 08/24/16 at 20:15 Polyethylene Glycol (miraLAX PACKET) 17 gm DAILY PO ; Start 08/25/16 at 09:00 Carvedilol (Coreg) 6.25 mg BIDWMEALS PO Last administered on 08/25/16 09:18; Start 08/24/16 at 22:15 Albuterol/ Ipratropium (Duoneb) 3 ml RTBID NEB Last administered on 08/25/16 07:32; Start 08/25/16 at 08:00 Budesonide (Pulmicort) 0.5 mg 1X ONCE NEB Last administered on 08/25/16 00:54 ; Start 08/24/16 at 22:15; Stop 08/24/16 at 22:16; Status DC Budesonide (Pulmicort) 0.5 mg RTBID NEB Last administered on 08/25/16 07:32; Start 08/25/16 at 08:00 Albuterol Sulfate (Ventolin Neb Soln) 2.5 mg PRN QID PRN NEB dyspnea; Start at 22:15 Saliva Substitute (Biotene Moisturizing Mouth) 2 spray PRN Q15MIN PRN PO DRY MOUTH; Start 08/24/16 at 22:15 Mirtazapine (Remeron) 30 mg QHS PO Last administered on 08/24/16 22:57; Start 08/24/16 at 22:15 Tamsulosin HCl (Flomax) 0.4 mg DAILY PO Last administered on 08/25/16 09:17; Start 08/25/16 at 09:00 Amlodipine Besylate (Norvasc) 5 mg DAILY PO Last administered on 08/25/16 09: 17; Start 08/25/16 at 09:00 Enoxaparin Sodium (Lovenox Per Pharmacy Prophylaxis Dosing) 1 each PRN DAILY PRN MC SEE COMMENTS; Start 08/25/16 at 09:00 Enoxaparin Sodium (Lovenox 40mg Syringe) 40 mg DAILY SQ Last administered on 09:19; Start 08/25/16 at 09:00 Active Scripts Active Reported Coreg (Carvedilol) 6.25 Mg Tablet 1 Tab PO BID Proair Hfa (Albuterol Sulfate) 8.5 Gm Hfa.aer.ad 8.5 Gm IH Proair Hfa Inhaler (Albuterol Sulfate) 8.5 Gm Hfa.aer.ad 2 Puff INH PRN QID PRN Morphine Sulfate 15 Mg Tablet 1 Tab PO PRN BID PRN Spiriva (Tiotropium [place]) 18 Mcg Cap.w.dev 2 Inh IH DAILY Aspir 81 (Aspirin) 81 Mg Tablet.dr 1 Tab PO DAILY Tamsulosin Hcl 0.4 Mg Cap.er.24h 1 Cap PO DAILY Zofran Odt (Ondansetron) 4 Mg Tab.rapdis 1 Tab SL PRN Q4HRS PRN Morphine Sulfate Er (Morphine Sulfate) 30 Mg Tablet.er 1 Tab PO TID Remeron (Mirtazapine) 15 Mg Tablet 1 Tab PO QHS Methylphenidate Hcl 5 Mg Tablet 1 Tab PO BID Metformin Hcl 500 Mg Tablet 500 Mg PO BIDWMEALS Loperamide (Loperamide Hcl) 2 Mg Capsule 2 Mg PO PRN QID PRN Senna Plus Tablet (Sennosides/Docusate Sodium) 1 Each Tablet 1 Each PO PRN BID PRN Symbicort 160-4.5 Mcg Inhaler (Budesonide/Formoterol Fumarate) 10.2 Gm Hfa.aer.ad 2 Puff IH BID Biotene Moisturizing Mouth (Saliva Stimulant Agents Comb.3) 44.3 Ml [place] 44.3 Ml MM 6XDAY Amlodipine Besylate 10 Mg Tablet 10 Mg PO DAILY Allergies Allergies: Coded Allergies: bupropion (Verified Allergy, Intermediate, 08/24/16) Physical Exam General: Alert, Oriented X3, Cooperative HEENT: Atraumatic, PERRLA Lungs: Clear to auscultation Heart: Regular rate, Normal S1, Normal S2 Abdomen: Normal bowel sounds, Soft Extremities: No edema Psych/Mental Status: Mental status NL Vitals VITALS Vital Signs Date Time Temp Pulse Resp B/P Pulse Ox O2 Delivery O2 Flow Rate FiO2 08/25/16 15:35 18 Nasal Cannula 08/25/16 14:57 98.5 76 98/51 92 2.0 98.5 Labs Labs Laboratory Tests Test 08/24/16 20:40 08/25/16 03:39 08/25/16 08:03 08/25/16 11:55 Glucose (Fingerstick) 102mg/dL (70-99) 100mg/dL (70-99) 112mg/dL (70-99) White Blood Count 5.9x10^3/uL (4.0-11.0) Red Blood Count 3.07x10^6/uL (4.30-5.70) Hemoglobin 9.6g/dL (13.0-17.5) Hematocrit 29.2% (39.0-53.0) Mean Corpuscular Volume 95fL (79-100) Mean Corpuscular Hemoglobin 31pg (25-35) Mean Corpuscular Hemoglobin Concent 33g/dL (31-37) Red Cell Distribution Width 16.0% (11.5-14.5) Platelet Count 347x10^3/uL (140-400) Neutrophils (%) (Auto) 64% (31-73) Lymphocytes (%) (Auto) 17% (24-48) Monocytes (%) (Auto) 10% (0-9) Eosinophils (%) (Auto) 8% (0-3) Basophils (%) (Auto) 1% (0-3) Neutrophils # (Auto) 3.8x10^3uL (1.8-7.7) Lymphocytes # (Auto) 1.0x10^3/uL (1.0-4.8) Monocytes # (Auto) 0.6x10^3/uL (0.0-1.1) Eosinophils # (Auto) 0.5x10^3/uL (0.0-0.7) Basophils # (Auto) 0.1x10^3/uL (0.0-0.2) Prothrombin Time 13.8SEC (11.7-14.0) Prothromb Time International Ratio 1.1 (0.8-1.1) Sodium Level 142mmol/L (136-145) Potassium Level 4.1mmol/L (3.5-5.1) Chloride Level 106mmol/L (98-107) Carbon Dioxide Level 28mmol/L (21-32) Anion Gap 8 (6-14) Blood Urea Nitrogen 19mg/dL (8-26) Creatinine 1.3mg/dL (0.7-1.3) Estimated GFR (Cockcroft-Gault) 55.6 BUN/Creatinine Ratio 15 (6-20) Glucose Level 83mg/dL (70-99) Calcium Level 9.2mg/dL (8.5-10.1) Phosphorus Level 4.2mg/dL (2.6-4.7) Magnesium Level 2.0mg/dL (1.8-2.4) Total Bilirubin 0.3mg/dL (0.2-1.0) Aspartate Amino Transf (AST/SGOT) 12U/L (15-37) Alanine Aminotransferase (ALT/SGPT) 10U/L (16-63) Alkaline Phosphatase 68U/L (46-116) Total Protein 7.0g/dL (6.4-8.2) Albumin 3.1g/dL (3.4-5.0) Albumin/Globulin Ratio 0.8 (1.0-1.7) Laboratory Tests Test 08/24/16 20:40 08/25/16 03:39 08/25/16 08:03 08/25/16 11:55 Glucose (Fingerstick) 102mg/dL (70-99) 100mg/dL (70-99) 112mg/dL (70-99) White Blood Count 5.9x10^3/uL (4.0-11.0) Red Blood Count 3.07x10^6/uL (4.30-5.70) Hemoglobin 9.6g/dL (13.0-17.5) Hematocrit 29.2% (39.0-53.0) Mean Corpuscular Volume 95fL (79-100) Mean Corpuscular Hemoglobin 31pg (25-35) Mean Corpuscular Hemoglobin Concent 33g/dL (31-37) Red Cell Distribution Width 16.0% (11.5-14.5) Platelet Count 347x10^3/uL (140-400) Neutrophils (%) (Auto) 64% (31-73) Lymphocytes (%) (Auto) 17% (24-48) Monocytes (%) (Auto) 10% (0-9) Eosinophils (%) (Auto) 8% (0-3) Basophils (%) (Auto) 1% (0-3) Neutrophils # (Auto) 3.8x10^3uL (1.8-7.7) Lymphocytes # (Auto) 1.0x10^3/uL (1.0-4.8) Monocytes # (Auto) 0.6x10^3/uL (0.0-1.1) Eosinophils # (Auto) 0.5x10^3/uL (0.0-0.7) Basophils # (Auto) 0.1x10^3/uL (0.0-0.2) Prothrombin Time 13.8SEC (11.7-14.0) Prothromb Time International Ratio 1.1 (0.8-1.1) Sodium Level 142mmol/L (136-145) Potassium Level 4.1mmol/L (3.5-5.1) Chloride Level 106mmol/L (98-107) Carbon Dioxide Level 28mmol/L (21-32) Anion Gap 8 (6-14) Blood Urea Nitrogen 19mg/dL (8-26) Creatinine 1.3mg/dL (0.7-1.3) Estimated GFR (Cockcroft-Gault) 55.6 BUN/Creatinine Ratio 15 (6-20) Glucose Level 83mg/dL (70-99) Calcium Level 9.2mg/dL (8.5-10.1) Phosphorus Level 4.2mg/dL (2.6-4.7) Magnesium Level 2.0mg/dL (1.8-2.4) Total Bilirubin 0.3mg/dL (0.2-1.0) Aspartate Amino Transf (AST/SGOT) 12U/L (15-37) Alanine Aminotransferase (ALT/SGPT) 10U/L (16-63) Alkaline Phosphatase 68U/L (46-116) Total Protein 7.0g/dL (6.4-8.2) Albumin 3.1g/dL (3.4-5.0) Albumin/Globulin Ratio 0.8 (1.0-1.7) Assessment/Plan Assessment/Plan This patient comes in with dehydration and near-syncope and has been having some mild frequent PVCs since his Coreg was stopped. The patient has been receiving IV fluids and his hydration status has improved. At this point he is feeling much better and I think that we can resume his Coreg at a lower dose and this would help with the palpitations as well as the PVCs. He had been on Coreg 12.5 mg by mouth twice a day I would decrease it to 6.25 mg by mouth twice a day. The patient may go home and be followed as an outpatient at the [facility]. Thank you very much for asking me to participate in the care of this patient. RYAN WAGNER MD Aug 25, 2016 16:15
== END 2016-08-25 16:34 | disposition home or self-care (01) | DRG 683 ==
LOC: 5 SOUTH 19:22
PROVIDERS: ADMIT Internal Medicine; ATTEND Internal Medicine
DX: N17.0 Acute kidney failure with tubular necrosis (principal); E44.1 Mild protein-calorie malnutrition; E86.0 Dehydration; I49.3 Ventricular premature depolarization; I50.9 Heart failure, unspecified; I11.0 Hypertensive heart disease with heart failure; R42 Dizziness and giddiness; J44.9 Chronic obstructive pulmonary disease, unspecified; R55 Syncope and collapse; I95.9 Hypotension, unspecified; Z79.84 Long term (current) use of oral hypoglycemic drugs; Z79.899 Other long term (current) drug therapy; Z82.49 Family history of ischemic heart disease and other diseases of the circulatory system; Z82.5 Family history of asthma and other chronic lower respiratory diseases; Z83.3 Family history of diabetes mellitus; Z85.528 Personal history of other malignant neoplasm of kidney; Z90.5 Acquired absence of kidney; Z88.8 Allergy status to other drugs, medicaments and biological substances; Z68.25 Body mass index [BMI] 25.0-25.9, adult; B19.20 Unspecified viral hepatitis C without hepatic coma
CPT/HCPCS: 36415; 71020; 78582; 80053; 82947; 83735; 84100; 85027; 85610; 94250; 94640; 94760; 96374; A9540; A9558; J1650; J2270; J7030; J7620